=== PATIENT | female | born 1990 | race Two or more races ===

== ENCOUNTER 2018-03-20 15:24 | Emergency (ER) | payer MEDICAID ==
--- NOTE | 2018-03-20 18:18 | PD ---
HPI Chief Complaint ctxs Date Seen: Mar 20, 2018 Time Seen: 18:13 Travel History International Travel<30 Days: No Contact w/Intl Traveler<30Days: No Known Affected Area: No History of Present Illness HPI pt. is a 27 y/o @ 38 6/7 weeks present w/ c/o ctxs. pt. from [place] here for a graduation and states been having ctxs since yesterday pm. ctxs have increased in intensity and freq since. +FM, no lof/vb. at present cervix 1-2/ 50/-3 and no change during time of monitoring. Weeks Gestation: 38 Para: 2 : 3 History Past Medical History Medical History: Denies Significant Hx Obstetric History Obstetric History , x 2 Past Surgical History Surgical History: No Previous Surgery Family History Family History: Negative Social History Alcohol Use: No Tobacco Use: No Substance Abuse: No Review of Systems Except as stated in HPI: all other systems reviewed are Neg Physical Exam Narrative GENERAL: Well-nourished, well-developed patient. SKIN: Warm and dry. HEAD: Normocephalic and atraumatic. EYES: No scleral icterus. No injection or drainage. ENT: No nasal drainage noted. Mucous membranes pink. Airway patent. NECK: Supple, trachea midline. No JVD. CARDIOVASCULAR: Regular rate and rhythm without murmurs, gallops, or rubs. RESPIRATORY: Breath sounds equal bilaterally. No accessory muscle use. BREASTS: Bilateral exam showed no masses , no retractions, no nipple discharge. ABDOMEN/GI: Abdomen soft, non-tender, bowel sounds present, no rebound, no guarding Gravid GENITOURINARY: External Genitalia: intact and normal in appearance Cervix: post Dilatation: 1-2 Effacement: 50 Station: high Presentation: cephalic Membranes: intact Uterine Contractions: q2-7 min FHT's: Category: 1 Reactive: + Variability: mod EXTREMITIES: No cyanosis or edema. BACK: Nontender without obvious deformity. No CVA tenderness. NEUROLOGICAL: Awake and alert. Motor and sensory grossly within normal limits. Five out of 5 muscle strength in all muscle groups. Normal speech. Data Data Vital Signs Reviewed: Yes [facility] Medical Record Reviewed: Yes Plan pt. to be d/c to home. pt. not in active labor. pt. given precautions for return. headed back to [place] in 2 days. f/u as sched. Diagnosis Diagnosis: Primary Impression: Uterine contractions Additional Impression: 38 weeks gestation of Disposition: 01 DISCHARGE HOME Tanner Sabillon Jr., MD Mar 20, 2018 18:18
== END 2018-03-20 18:20 | disposition home or self-care (01) ==
LOC: HOBED 15:24
DX: O47.1 False labor at or after 37 completed weeks of gestation (principal); Z3A.38 38 weeks gestation of pregnancy
CPT/HCPCS: 99283